=== PATIENT | female | born 1950 | race Caucasian/White ===

== ENCOUNTER → 2019-09-08 17:35 | Outpatient (BNVA) | payer MEDICARE, SELFPAY | PROVIDERS: Family Provider Family Medicine; PCP Family Medicine; Visit Provider Family Medicine | DX: N18.5 Chronic kidney disease, stage 5 (principal); E89.0 Postprocedural hypothyroidism; D63.1 Anemia in chronic kidney disease; J44.9 Chronic obstructive pulmonary disease, unspecified; R25.2 Cramp and spasm | CPT/HCPCS: 80048; 83735; 84100; 84443; 85025 ==

== ENCOUNTER → 2020-05-09 18:00 | Outpatient (BNVA) | payer MEDICARE, SELFPAY | PROVIDERS: Family Provider Family Medicine; PCP Family Medicine; Visit Provider Family Medicine | DX: R53.83 Other fatigue (principal); E55.9 Vitamin D deficiency, unspecified; I10 Essential (primary) hypertension; J44.9 Chronic obstructive pulmonary disease, unspecified; N18.5 Chronic kidney disease, stage 5; E87.5 Hyperkalemia; K91.2 Postsurgical malabsorption, not elsewhere classified; E89.0 Postprocedural hypothyroidism; K21.9 Gastro-esophageal reflux disease without esophagitis; D63.1 Anemia in chronic kidney disease; E87.6 Hypokalemia | CPT/HCPCS: 80053; 80061; 82652; 83735; 84100; 84443; 85025 ==

== ENCOUNTER → 2020-11-29 18:00 | Outpatient (BNVA) | payer MEDICARE, SELFPAY | PROVIDERS: Family Provider Family Medicine; PCP Family Medicine; Visit Provider Family Medicine | DX: I10 Essential (primary) hypertension (principal); G47.00 Insomnia, unspecified; K91.2 Postsurgical malabsorption, not elsewhere classified; E89.0 Postprocedural hypothyroidism; M10.30 Gout due to renal impairment, unspecified site; K21.9 Gastro-esophageal reflux disease without esophagitis; E87.6 Hypokalemia; E83.39 Other disorders of phosphorus metabolism; R25.2 Cramp and spasm; F51.01 Primary insomnia; N18.5 Chronic kidney disease, stage 5; E03.9 Hypothyroidism, unspecified; E55.9 Vitamin D deficiency, unspecified; R53.83 Other fatigue; E87.5 Hyperkalemia; D63.1 Anemia in chronic kidney disease | CPT/HCPCS: 80053; 82652; 83735; 84100; 84439; 84443; 84481; 85025 ==

== ENCOUNTER 2021-03-02 14:44 | Inpatient (IN) | payer SELFPAY ==
[2021-03-02 15:35] VITALS: BP 138/71; PULSE 92; RESP 18; TEMP 36.8; O2SAT 97; BMI 23.1
--- NOTE | 2021-03-02 17:40 | ECG_ITS ---
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 Measurements Intervals [place] Rate: 83 P: 53 ND: 177 QRS: 30 QRSD: 92 T: 39 QT: 382 QTc: 449 Interpretive Statements SINUS RHYTHM No previous ECG available for comparison Electronically Signed On 03-03-2021 22:08:08 CDT by Contreras Rao M.D. [email or web address]
[2021-03-02 19:41] LABS: Basophils % 0.2 %; Eosinophils # 0.2 10^3/uL (0.0-0.8); Eosinophils % 2.1 %; Lymphocytes # 1.2 10^3/uL (0.8-4.8); Lymphocytes % 12.9 %; Mean Corpuscular HGB Conc 29.4 g/dL (30.0-36.0); Mean Corpuscular Hemoglobin 33.1 pg (28.0-34.0); Mean Corpuscular Volume 112.8 fl (81-99); Mean Platelet Volume 10.3 fL (7.4-10.4); Monocytes # 0.6 10^3/uL (0.2-0.9); Monocytes % 6.1 %; Neutrophils # 7.11 10^3/uL (1.8-7.7); Neutrophils % 77.8 %; Nucleated Red Blood Cells % 0 %; Platelet Count 260 10^3/cmm (130-400); Red Blood Count 1.72 10^6/uL (4.1-5.3); Red Cell Distribution Width 17.7 % (12.1-15.1); White Blood Count 9.1 10^3/uL (4.0-10.0)
[2021-03-02 20:05] LABS: Troponin(5th) Baseline 27 ng/L (0-10)
[2021-03-02 20:14] LABS: Alanine Aminotransferase 11 U/L (0-33); Albumin Level 4.2 g/dL (3.5-5.2); Alkaline Phosphatase 110 IU/L (35-105); Anion Gap 20.9 (5-19); Aspartate Amino Transferase 14 U/L (0-32); Blood Urea Nitrogen 44 mg/dL (8-23); Carbon Dioxide 23 mmol/L (22-29); Chloride 102 mmol/L (98-107); Globulin 2.3 g/dL (1.3-4.6); Glomerular Filtration Rate 11.1 mL/min (90-130); Glucose 142 mg/dL (65-115); Lipase 46 U/L (13-60); NT Pro B Type Natriuretic Pept 718 pg/mL (0-125); Osmolality Calculated 306 mOsm/kg (285-295); Potassium 4.9 mmol/L (3.5-5.1); Sodium 141 mmol/L (136-145); Total Bilirubin 0.2 mg/dL (0.15-1.2); Total Protein 6.5 g/dL (6.6-8.7)
[2021-03-02 20:16] LABS: Hematocrit 19.4 % (37.0-47.0); Hemoglobin 5.7 g/dL (11.5-15.3)
--- NOTE | 2021-03-02 20:37 | CTR_ITS ---
PROCEDURE INFORMATION: Exam: CT Abdomen And Pelvis Without Contrast Exam date and time: 03/02/2021 8:37 PM Age: 70 years old Clinical indication: Nausea; Prior surgery; Surgery type: Colon, mastectomy; Patient HX: HX of breast, colon, and bowel cancer; Additional info: H/o colon cancer, anemia TECHNIQUE: Imaging protocol: Computed tomography of the abdomen and pelvis without contrast. Radiation optimization: All CT scans at this facility use at least one of these dose optimization techniques: automated exposure control; mA and/or kV adjustment per patient size (includes targeted exams where dose is matched to clinical indication); or iterative reconstruction. COMPARISON: CR (CHEST, ) 03/02/2021 8:48 PM RADIATION DOSE METRICS: Total DLP (mGy-cm): 960.11 FINDINGS: Liver: Fluid density cyst in the left liver lobe, Hounsfield units less than 20. No imaging follow-up is recommended. Gallbladder and bile ducts: The gallbladder is absent. Pancreas: Normal. No ductal dilation. Spleen: Normal. No splenomegaly. Adrenal glands: Normal. No mass. Kidneys and ureters: Atrophic right kidney. 2.0 cm irregular shaped nonobstructing calculus in the posterior left kidney. Fluid density cysts in the left kidney, Hounsfield units less than 20. No imaging follow-up is recommended. Bilateral perinephric stranding is most likely chronic and physiologic. No ureteral calculus or hydronephrosis. Stomach and bowel: The entire colon has been resected. Right lower quadrant ileostomy. The stomach is normal. There are fluid-filled loops of small bowel which measure up to 3 cm in diameter with small air-fluid levels. No focal transition point or obstruction identified. Appendix: The appendix is surgically absent. Intraperitoneal space: Abdominal peroneal resection. 2.5 cm cystic fluid collection in the posterior pelvis is most likely a seroma, Hounsfield units less than 20. Vasculature: Unremarkable. No abdominal aortic aneurysm. Lymph nodes: Unremarkable. No enlarged lymph nodes. Urinary bladder: Unremarkable as visualized. Reproductive: Unremarkable as visualized. Bones/joints: Unremarkable. No acute fracture. Soft tissues: Surgical clips in the pelvis. CT/CT abdomen pelvis wo con [id number] IMPRESSION: 1. Prominent fluid-filled loops of small bowel could represent mild ileus or enteritis. No evidence for obstruction. 2. Colon resection with abdominal peroneal resection. 3. Atrophic right kidney. 4. 2.0 cm nonobstructing left renal calculus. COMMENTS: Consistent with the [employer]'s Incidental Findings Committee white paper (J Am Chacorta Radiol 2018): Any incidental renal lesion less than 1 cm or classified as too small to characterize, or any incidental cystic renal lesion characterized as simple-appearing, is likely benign. No follow-up imaging is recommended for these lesions per consensus recommendations based on imaging criteria. Radiation Dose CTDIVOL = (mGy): DLP = 960.11 (mGy-cm)
--- NOTE | 2021-03-02 20:37 | XRR_ITS ---
PROCEDURE INFORMATION: Exam: XR Chest Exam date and time: 03/02/2021 8:37 PM Age: 70 years old Clinical indication: Shortness of breath; Prior surgery; Surgery type: Masectomy; Patient HX: HX breast cancer, SOB, dizzy, weak TECHNIQUE: Imaging protocol: XR of the chest. Views: 1 view. COMPARISON: No relevant prior studies available. FINDINGS: Lungs: Unremarkable. No consolidation. Pleural spaces: Unremarkable. No pleural effusion. No pneumothorax. Heart/Mediastinum: Unremarkable. No cardiomegaly. Bones/joints: Unremarkable. XR/XR chest 1V portable [id number] IMPRESSION: No acute findings.
[2021-03-02 22:03] LABS: Troponin 5 2HR 22.92 ng/L (0-10)
[2021-03-02 22:04] LABS: Troponin 5 2HR Delta -4.08 ABS# (0-10)
--- NOTE | 2021-03-02 22:17 | PC.NURSE ---
no blood tubing in er, charge nurse to find some.
[2021-03-02 23:00] VITALS: BP 138/77; PULSE 84; RESP 18; TEMP 37.1; O2SAT 98
[2021-03-02] MEDS: sodium chloride 0.9% 1,000 ML 30 ML IV (23:01)
[2021-03-02 23:16] VITALS: BP 136/66; PULSE 87; RESP 18; TEMP 36.9; O2SAT 100
[2021-03-02 23:36] VITALS: BP 136/6; PULSE 82; RESP 18; TEMP 37.2; O2SAT 100
[2021-03-03] VITALS (12 sets, daily range): BP systolic 119–154; BP diastolic 49–84; PULSE 69–94; RESP 14–18; TEMP 36.5–37.3; O2SAT 97–100; BMI 23.1
--- NOTE | 2021-03-03 00:11 | ED_ITS ---
HPI - Weakness General: Chief complaint: ER Hold Stated complaint: dizzy, weak, pale Time Seen by Provider: 03/02/21 20:17 Source: patient, family () and RN notes reviewed Mode of arrival: ambulatory Limitations: physical limitation History of Present Illness: HPI Narrative: Patient is a 70-year-old female who has a prior history of Crohn's disease, colon cancer, status post total colectomy and ileostomy, breast cancer, thyroid cancer. She presents to the emergency department with generalized weakness that has been ongoing for about a week. Her noticed that she has also been getting paler and weaker. She gets very dizzy especially when she rises from a sitting or lying position. She has had no syncopal events. Her stoma was noted to be pale. Her therefore thought that she was pretty anemic and wanted her evaluated in the emergency department. MD Complaint: generalized weakness Onset (ago): week(s) (1) Duration: constant Location: generalized Migration: none Severity: severe Exacerbating factors: exertion Associated symptoms: Reports short of breath; Denies chest pain, chills, confusion, melena, decreased appetite, diaphoresis, dysuria, easy bruising, fever(s), headache(s), myalgias, nausea, rash, syncope or vomiting Review of Systems General: Reports: 10 or more systems reviewed and unremarkable except in HPI and below Const: Denies: fever(s), chills or diaphoresis Card: Denies: chest pain or syncope GI: Denies: nausea, vomiting or melena : Denies: dysuria Neuro: Denies: headache(s) or confusion Hermes/Lymph: Denies: easy bruising [facility] ED PFSH: Medical History (Updated 03/03/21 @ 13:15 by Rosaura Lee MD, [facility] [place]) Acquired short bowel syndrome Anemia in chronic kidney disease (CKD) Chronic GERD Gout due to renal impairment History of breast cancer History of colon cancer History of rectal cancer History of thyroid cancer Hyperkalemia Hypertension Insomnia Ambien caused sleep eating. Melatonin caused nightmare. Muscle cramps Postoperative hypothyroidism Stage 5 chronic kidney disease Vitamin D deficiency Surgical History H/O ileostomy H/O nephrostomy H/O: hysterectomy History of intestinal surgery Hx of cataract surgery Social History Smoking and tobacco status: never smoked Second hand smoke exposure: No Alcohol intake: never Desire information about alcohol rehabilitation?: No Desire information about substance/drug rehabilitation?: No History of recent travel: No Female Reproductive History: Spontaneous abortions: No Physical Exam Const: COMMON NORMALS: no acute distress, average body habitus, patient oriented x3, no limitations, healthy appearing, alert and well nourished HENMT: COMMON NORMALS: normocephalic, atraumatic and moist oral mucous membranes HEAD & SCALP: normocephalic and atraumatic Neck/C-Spine: COMMON NORMALS: no meningeal signs and no JVD Resp: COMMON NORMALS: normal respiratory effort, No retractions, No use of accessory muscles, clear to auscultation bilaterally and percussion normal AUSCULTATION: clear to auscultation bilaterally PERCUSSION: percussion normal Cardio: COMMON NORMALS: no JVD, regular rate, regular rhythm, S1 normal heart sound present, S2 normal heart sound present, No gallops present (Cardio), No clicks present (Cardio), No murmurs present (Cardio), No rub (Cardio) and Peripheral pulses 2+ throughout RATE: regular rate RHYTHM: regular rhythm HEART SOUNDS: S1 normal heart sound present and S2 normal heart sound present PERIPHERAL PULSES: Peripheral pulses 2+ throughout GI: COMMON NORMALS: Soft to palpation, non-tender, No hepatosplenomegaly present, no masses and no bruits INSPECTION: Yes GI ostomy present PALPATION: Yes Soft to palpation and Yes No hepatosplenomegaly present Extremity: COMMON NORMALS: normal to inspection, full ROM, capillary refill normal, no calf tenderness and no pedal edema Neuro: COMMON NORMALS: patient oriented x3 SENSORIUM/ORIENTATION: Yes alert MENINGEAL SIGNS: Yes no meningeal signs Skin: COMMON NORMALS: no rashes or lesions noted, no wounds, turgor normal, no jaundice, no petechiae and no mottling GENERAL SKIN EXAM: no rashes or lesions noted and turgor normal Course Reevaluation(s): Reevaluation #1: Discussed her lab and imaging findings with the patient and her earlier and at that time, suggested that she would likely be admitted. Discussed my conversation with Dr. De Leon with the patient. She voiced understanding and all questions answered. Time: 22:40 Consultations: Consultation #1: Discussed the patient with Dr. De Leon, hosp italist and she kindly accepted the patient to her service. Time: 22:32 Vital Signs: Vital signs: Vital Signs Temperature 98.5 F 03/03/21 12:00 Pulse Rate 69 03/03/21 12:00 Respiratory Rate 16 03/03/21 12:00 Blood Pressure 120/66 03/03/21 12:00 Pulse Oximetry 97 03/03/21 12:00 MDM - Weakness MDM Narrative: Medical decision making narrative: This pleasant 70-year-old female patient with history of multiple types of cancer, Crohn's disease, total colectomy and a permanent ileostomy presents to the emergency department with generalized weakness and pallor. On evaluation she is severely anemic with hemoglobin of 5.7. She was started on blood transfusions in the emergency department and is admitted to the hospital for further evaluation and management Medical Records: Attestation: I reviewed the patient's medical records. Lab Data: Attestation: I reviewed the patient's lab results. Labs: Lab Results 03/02/21 03/02/21 03/02/21 Range/Units 19:33 19:33 19:33 WBC 9.1 (4.0-10.0) 10^3/ uL RBC 1.72 L (4.1-5.3) 10^6/u L Hgb 5.7 L* (11.5-15.3) g/dL Hct 19.4 L* (37.0-47.0) % MCV 112.8 H (81-99) fl MCH 33.1 (28.0-34.0) pg MCHC 29.4 L (30.0-36.0) g/dL RDW 17.7 H (12.1-15.1) % Plt Count 260 (130-400) 10^3/c mm MPV 10.3 (7.4-10.4) fL Neut % (Auto) 77.8 % Lymph % (Auto) 12.9 % Highland % (Auto) 6.1 % Eos % (Auto) 2.1 % Baso % (Auto) 0.2 % Neut # (Auto) 7.11 (1.8-7.7) 10^3/u L Lymph # (Auto) 1.2 (0.8-4.8) 10^3/u L Highland # (Auto) 0.6 (0.2-0.9) 10^3/u L Eos # (Auto) 0.2 (0.0-0.8) 10^3/u L Baso # (Auto) 0.0 (0.0-0.1) 10^3/u L Nucleated RBC % (a uto) 0 % Nucleated RBCs # 0.0 /100WBC Sodium 141 (136-145) mmol/L Potassium 4.9 (3.5-5.1) mmol/L Chloride 102 (98-107) mmol/L Carbon Dioxide 23 (22-29) mmol/L Anion Gap 20.9 H (5-19) BUN 44 H (8-23) mg/dL Creatinine 4.0 H (0.5-0.9) mg/dL GFR Calculation 11.1 L (90-130) mL/min Glucose 142 H (65-115) mg/dL Calculated Osmolal ity 306 H (285-295) mOsm/k g Calcium 9.0 (8.5-10.5) mg/dL Iron (37-145) ug/dL TIBC mcg/dl % Saturation (20-50) % Unsat Iron Binding (112-347) ug/dL Ferritin (15-150) ng/mL Total Bilirubin 0.2 (0.15-1.2) mg/dL AST 14 (0-32) U/L ALT 11 (0-33) U/L Alkaline Phosphata se 110 H (35-105) IU/L Troponin T Baselin e 27 H (0-10) ng/L Troponin T 120 Min ho-chunk (0-10) ng/L Delta Troponin T (0-10) ABS# NT-Pro-B Natriuret Pep 718 H (0-125) pg/mL Total Protein 6.5 L (6.6-8.7) g/dL Albumin 4.2 (3.5-5.2) g/dL Globulin 2.3 (1.3-4.6) g/dL Lipase 46 (13-60) U/L Vitamin B12 (232-1245) pg/mL Folate (4.8-37.3) ng/mL Blood Type Rho(D) Type Antibody Screen Crossmatch 03/02/21 03/02/21 03/02/21 Range/Units 19:33 19:33 19:33 WBC (4.0-10.0) 10^3/ uL RBC (4.1-5.3) 10^6/u L Hgb (11.5-15.3) g/dL Hct (37.0-47.0) % MCV (81-99) fl MCH (28.0-34.0) pg MCHC (30.0-36.0) g/dL RDW (12.1-15.1) % Plt Count (130-400) 10^3/c mm MPV (7.4-10.4) fL Neut % (Auto) % Lymph % (Auto) % Highland % (Auto) % Eos % (Auto) % Baso % (Auto) % Neut # (Auto) (1.8-7.7) 10^3/u L Lymph # (Auto) (0.8-4.8) 10^3/u L Highland # (Auto) (0.2-0.9) 10^3/u L Eos # (Auto) (0.0-0.8) 10^3/u L Baso # (Auto) (0.0-0.1) 10^3/u L Nucleated RBC % (a uto) % Nucleated RBCs # /100WBC Sodium (136-145) mmol/L Potassium (3.5-5.1) mmol/L Chloride (98-107) mmol/L Carbon Dioxide (22-29) mmol/L Anion Gap (5-19) BUN (8-23) mg/dL Creatinine (0.5-0.9) mg/dL GFR Calculation (90-130) mL/min Glucose (65-115) mg/dL Calculated Osmolal ity (285-295) mOsm/k g Calcium (8.5-10.5) mg/dL Iron 36 L (37-145) ug/dL TIBC 368 mcg/dl % Saturation 9.7 L (20-50) % Unsat Iron Binding 332 (112-347) ug/dL Ferritin 122 (15-150) ng/mL Total Bilirubin (0.15-1.2) mg/dL AST (0-32) U/L ALT (0-33) U/L Alkaline Phosphata se (35-105) IU/L Troponin T Baselin e (0-10) ng/L Troponin T 120 Min ho-chunk (0-10) ng/L Delta Troponin T (0-10) ABS# NT-Pro-B Natriuret Pep (0-125) pg/mL Total Protein (6.6-8.7) g/dL Albumin (3.5-5.2) g/dL Globulin (1.3-4.6) g/dL Lipase (13-60) U/L Vitamin B12 987 (232-1245) pg/mL Folate 15.6 (4.8-37.3) ng/mL Blood Type O Positive Rho(D) Type Positive Antibody Screen Negative Crossmatch See Detail 03/02/21 Range/Units 21:28 WBC (4.0-10.0) 10^3/ uL RBC (4.1-5.3) 10^6/u L Hgb (11.5-15.3) g/dL Hct (37.0-47.0) % MCV (81-99) fl MCH (28.0-34.0) pg MCHC (30.0-36.0) g/dL RDW (12.1-15.1) % Plt Count (130-400) 10^3/c mm MPV (7.4-10.4) fL Neut % (Auto) % Lymph % (Auto) % Highland % (Auto) % Eos % (Auto) % Baso % (Auto) % Neut # (Auto) (1.8-7.7) 10^3/u L Lymph # (Auto) (0.8-4.8) 10^3/u L Highland # (Auto) (0.2-0.9) 10^3/u L Eos # (Auto) (0.0-0.8) 10^3/u L Baso # (Auto) (0.0-0.1) 10^3/u L Nucleated RBC % (a uto) % Nucleated RBCs # /100WBC Sodium (136-145) mmol/L Potassium (3.5-5.1) mmol/L Chloride (98-107) mmol/L Carbon Dioxide (22-29) mmol/L Anion Gap (5-19) BUN (8-23) mg/dL Creatinine (0.5-0.9) mg/dL GFR Calculation (90-130) mL/min Glucose (65-115) mg/dL Calculated Osmolal ity (285-295) mOsm/k g Calcium (8.5-10.5) mg/dL Iron (37-145) ug/dL TIBC mcg/dl % Saturation (20-50) % Unsat Iron Binding (112-347) ug/dL Ferritin (15-150) ng/mL Total Bilirubin (0.15-1.2) mg/dL AST (0-32) U/L ALT (0-33) U/L Alkaline Phosphata se (35-105) IU/L Troponin T Baselin e (0-10) ng/L Troponin T 120 Min ho-chunk 22.92 H (0-10) ng/L Delta Troponin T -4.08 L (0-10) ABS# NT-Pro-B Natriuret Pep (0-125) pg/mL Total Protein (6.6-8.7) g/dL Albumin (3.5-5.2) g/dL Globulin (1.3-4.6) g/dL Lipase (13-60) U/L Vitamin B12 (232-1245) pg/mL Folate (4.8-37.3) ng/mL Blood Type Rho(D) Type Antibody Screen Crossmatch Imaging Data^: CT Abd/Pel: Attestation: I personally reviewed and interpreted this imaging study as follows: Radiologist's impression: [address] [id number] Scan ReportSigned Patient: Alistair Crowley #: [id number]: [id number]#:[id number]/Sex: 70 / FADM Date: 03/02/21Loc: ERRoom/Bed:Attending Dr: Ordering Provider/Ordering MD: Rosaura Lee MD, [facility] [place] Date of Service: 03/02/21 Procedure(s): CT abdomen pelvis con [id number] Accession Number(s): [id number] Report Number: [id number] PROCEDURE INFORMATION: Exam: CT Abdomen And Pelvis Without Contrast Exam date and time: 03/02/2021 8:37 PM Age: 70 years old Clinical indication: Nausea; Prior surgery; Surgery type: Colon, mastectomy; Patient HX: HX of breast, colon, and bowel cancer; Additional info: H/o colon cancer, anemia TECHNIQUE: Imaging protocol: Computed tomography of the abdomen and pelvis without contrast. Radiation optimization: All CT scans at this facility use at least one of these dose optimization techniques: automated exposure control; mA and/or kV adjustment per patient size (includes targeted exams where dose is matched to clinical indication); or iterative reconstruction. COMPARISON: CR (CHEST, ) 03/02/2021 8:48 PM RADIATION DOSE METRICS: Total DLP (mGy-cm): 960.11 FINDINGS: Liver: Fluid density cyst in the left liver lobe, Hounsfield units less than 20. No imaging follow-up is recommended. Gallbladder and bile ducts: The gallbladder is absent. Pancreas: Normal. No ductal dilation. Spleen: Normal. No splenomegaly. Adrenal glands: Normal. No mass. Kidneys and ureters: Atrophic right kidney. 2.0 cm irregular shaped nonobstructing calculus in the posterior left kidney. Fluid density cysts in the left kidney, Hounsfield units less than 20. No imaging follow-up is recommended. Bilateral perinephric stranding is most likely chronic and physiologic. No ureteral calculus or hydronephrosis. Stomach and bowel: The entire colon has been resected. Right lower quadrant ileostomy. The stomach is normal. There are fluid-filled loops of small bowel which measure up to 3 cm in diameter with small air-fluid levels. No focal transition point or obstruction identified. Appendix: The appendix is surgically absent. Intraperitoneal space: Abdominal peroneal resection. 2.5 cm cystic fluid collection in the posterior pelvis is most likely a seroma, Hounsfield units less than 20. Vasculature: Unremarkable. No abdominal aortic aneurysm. Lymph nodes: Unremarkable. No enlarged lymph nodes. Urinary bladder: Unremarkable as visualized. Reproductive: Unremarkable as visualized. Bones/joints: Unremarkable. No acute fracture. Soft tissues: Surgical clips in the pelvis. CT/CT abdomen pelvis wo con [id number] IMPRESSION: 1. Prominent fluid-filled loops of small bowel could represent mild ileus or enteritis. No evidence for obstruction. 2. Colon resection with abdominal peroneal resection. 3. Atrophic right kidney. 4. 2.0 cm nonobstructing left renal calculus. COMMENTS: Consistent with the [employer]'s Incidental Findings Committee white paper (J Am Chacorta Radiol 2018): Any incidental renal lesion less than 1 cm or classified as too small to characterize, or any incidental cystic renal lesion characterized as simple-appearing, is likely benign. No follow-up imaging is recommended for these lesions per consensus recommendations based on imaging criteria. Radiation Dose CTDIVOL = (mGy): DLP = 960.11 (mGy-cm) Dictated By:Bay Thomas By:Bay Thomas Date/Time:03/02/213DD/ 41 CXR: Attestation: I personally reviewed and interpreted this imaging study as follows: Radiologist's impression: [address] [id number] ReportSigned Patient: Alistair Crowley #: [id number]: [id number]#:[id number]/Sex: 70 / FADM Date: 03/02/21Loc: ERRoom/Bed:Attending Dr: Ordering Provider/Ordering MD: Rosaura Lee MD, [facility] [place] Date of Service: 03/02/21 Procedure(s): XR chest 1V portable [id number] Accession Number(s): [id number] Report Number: [id number] PROCEDURE INFORMATION: Exam: XR Chest Exam date and time: 03/02/2021 8:37 PM Age: 70 years old Clinical indication: Shortness of breath; Prior surgery; Surgery type: Masectomy; Patient HX: HX breast cancer, SOB, dizzy, weak TECHNIQUE: Imaging protocol: XR of the chest. Views: 1 view. COMPARISON: No relevant prior studies available. FINDINGS: Lungs: Unremarkable. No consolidation. Pleural spaces: Unremarkable. No pleural effusion. No pneumothorax. Heart/Mediastinum: Unremarkable. No cardiomegaly. Bones/joints: Unremarkable. XR/XR chest 1V portable [id number] IMPRESSION: No acute findings. Dictated By:Bay Thomas By:Bay Thomas Date/Time:03/02/214DD/ 31 Discharge Plan Discharge Patient Disposition: Admitted As Inpatient Admit Provider: Angeles De Leon Clinical Impression: Anemia, Stage 5 chronic kidney disease, Crohn's disease Condition: Stable Coding Level of Care Code ED Personnel And Payroll Technician for Juarez Arciniega
[2021-03-03 02:21] LABS: Ferritin 122 ng/mL (15-150); Iron 36 ug/dL (37-145); Percent Saturation 9.7 % (20-50); Total Iron Binding Capacity 368 mcg/dl; Unsaturated Iron Binding 332 ug/dL (112-347)
[2021-03-03 02:23] LABS: Troponin 5 6HR 21.33 ng/L (0-10)
[2021-03-03 02:28] LABS: Troponin 5 6HR Delta -5.67 ng/L (0-12)
[2021-03-03 02:36] LABS: Folate Level 15.6 ng/mL (4.8-37.3); Vitamin B12 987 pg/mL (232-1245)
--- NOTE | 2021-03-03 04:00 | P.HP_ITS ---
Providers/Chief Complaint Admitting Physician: Angeles De Leon MD Primary Care Provider: Dionne Montaño MD Chief Complaint: dizzy, weak, pale History of Present Illness Melina Crowley is a 70 year old female with a complicated past medical history of breast cancer, colon cancer, rectal cancer, status post total colectomy, currently with ileostomy in place, chronic electrolyte disturbances, chronic kidney disease, chronic anemia who was brought into the ER today by her after patient was noted to become become more pale and lethargic over the past 2 weeks. Hemoglobin here is noted to be 5.7, few months ago this was at 9.5. Patient has had multiple transfusions back in 2013 and 2014. She had CKD for several years, was on dialysis in the past, eventually discontinued once creatinine stabilized at 3. More recently creatinine has been increasing in the 4 range, she has refused referral to nephrology. No complaints of any fever chest pain dyspnea palpitations cough abdominal pain. No changes in ileostomy output. No noted blood in the ileal output. No vomiting. She has a history of Crohn's disease but some duodenal involvement in the past, however is currently on observation only. She takes Pepcid 20 mg p.o. twice daily, PPIs have been avoided due to CKD. Review of Systems General: Reports: 10 or more systems reviewed and unremarkable except in HPI and below Const: Denies: fever(s), chills or body aches Eyes: Denies: change in vision, blurry vision or photophobia ENMT: Reports: hoarseness; Denies: throat pain, enlarged tonsils, odynophagia or nasal congestion Card: Denies: chest pain, palpitations, irregular heart rhythm, edema, swelling of feet/ankles, lightheadedness, pre-syncope, dyspnea on exertion or orthopnea Resp: Denies: dyspnea, productive cough, non-productive cough, wheezing, stridor, pain on inspiration, change in phlegm color, hemoptysis or chest congestion GI: Denies: abdominal pain, nausea, vomiting, hematemesis, coffee ground emesis, dysphagia, heartburn, diarrhea, constipation, GI cramping, change in stool character, hematochezia or melena : Denies: flank pain, difficulty voiding, dysuria, urinary frequency, urinary urgency, urinary hesitancy or hematuria Musc: Denies: neck pain, back pain, extremity pain, joint swelling, joint warmth or deformity Neuro: Denies: headache(s), numbness in extremities, weakness in extremities, sensory changes, difficulty walking, frequent falls, dizziness, vertigo, behavioral changes, Slurred speech present or seizure-like activity Psych: Denies: anxiety, depression, suicidal ideation or homicidal ideation Endo: Denies: polyuria, polydipsia, tired all the time, cold intolerance or hot flashes Hermes/Lymph: Denies: easy bruising or easy bleeding Medications/Allergies Home Medications Medication Instructions Recorded Confirmed Last Taken Type allopurinol 100 mg tablet 50 mg PO DAILY 90 Days #45 tab 11/29/20 11/29/20 Unk nown Rx clonidine HCl 0.1 mg tablet 0.1 mg PO DAILY PRN 30 Days #30 tab 11/29/20 11/29/20 Unknown Rx diphenoxylate-atropine 2.5 1 tab PO QID PRN 90 Days #360 tab 11/29/20 11/29/20 Unknown Rx mg-0.025 mg tablet famotidine 20 mg tablet 20 mg PO BID 90 Days #180 tab 11/29/20 11/29/20 Unknown Rx levothyroxine 150 mcg tablet 150 mcg PO DAILY 90 Days #90 tab 11/29/20 11/29/20 Unknown Rx levothyroxine 75 mcg tablet 75 mcg PO DAILY 90 Days #90 tab 11/29/20 11/29/20 Unknown Rx lisinopril 20 mg tablet 20 mg PO BID 90 Days #180 tab 11/29/20 11/29/20 Unknown Rx loperamide 2 mg capsule 6 mg PO TID 90 Days #810 cap 11/29/20 11/29/20 Unknown Rx lorazepam 0.5 mg tablet 0.5 mg PO DAILY PRN #30 tab 11/29/20 11/29/20 Unknown Rx ondansetron HCl 4 mg tablet 4 mg PO Q8H PRN 90 Days #270 tab 11/29/20 11/29/20 Unknown Rx potassium citrate 10 mEq (1,080 10 meq PO DAILY 90 Days #90 tab 11/29/20 11/29/20 Unknown Rx mg) tablet,extended release prednisone 20 mg tablet 20 mg PO DAILY PRN 5 Days #20 tab 11/29/20 11/29/20 Unknown Rx sevelamer carbonate 0.8 gram oral 0.8 g PO TID 30 Days #90 each 11/29/20 11/29/20 Unknown Rx powder packet tizanidine 4 mg tablet 4 mg PO BID PRN 90 Days #180 tab 11/29/20 11/29/20 Unknown Rx Allergies Allergy/AdvReac Type Severity Reaction Status Date / Time adhesive tape Allergy Unknown UNKNOWN Verified 11/29/20 13:34 gentamicin Allergy Unknown UNKNOWN Verified 11/29/20 13:34 hydromorphone [From Dilaudid] Allergy Unknown UNKNOWN Verified 11/29/20 13:34 iodine Allergy Unknown UNKNOWN Verified 11/29/20 13:34 sulfamethoxazole Allergy Unknown UNKNOWN Verified 11/29/20 13:34 [From Septra] trimethoprim [From Septra] Allergy Unknown UNKNOWN Verified 11/29/20 13:34 PFSH Acute PFSH: Medical History Acquired short bowel syndrome Anemia in chronic kidney disease (CKD) Chronic GERD Gout due to renal impairment History of breast cancer History of colon cancer History of rectal cancer History of thyroid cancer Hyperkalemia Hypertension Insomnia Ambien caused sleep eating. Melatonin caused nightmare. Muscle cramps Postoperative hypothyroidism Stage 5 chronic kidney disease Vitamin D deficiency Surgical History H/O ileostomy H/O nephrostomy H/O: hysterectomy History of intestinal surgery Hx of cataract surgery Social History Smoking and tobacco status: never smoked Second hand smoke exposure: No Alcohol intake: never Desire information about alcohol rehabilitation?: No Desire information about substance/drug rehabilitation?: No History of recent travel: No Female Reproductive History: Spontaneous abortions: No Vitals/I&O/Wt Last Vital Signs Temp 98.8 F 03/03/21 06:39 Pulse 94 03/03/21 06:39 Resp 18 03/03/21 06:39 BP 127/84 03/03/21 06:39 Pulse Ox 98 03/03/21 06:39 03/02/21 03/03/21 03/03/21 22:59 06:59 14:59 Intake Total 700 / 700 Balance 700 / 700 Weight last 48 hrs Weight 64.864 kg Physical Exam Narrative: EXAM NARRATIVE: General: No acute distress, AO x3 HEENT: PERRLA, pupils bilaterally equal and reactive, pallors not present Chest: Normal vesicular breath sounds, no added sounds, equal good air entry bilaterally CVS: S1-S2 regular, no murmurs, no tachycardia, no gallops, no rubs Abdomen: Soft, nontender, ileostomy in place. Neuro: No focal deficits, no facial deformity, AO x3, power 5/5 in all limbs Data : 03/02/21 19:33 03/03/21 05:40 A&P Assessment and plan (1) Anemia in chronic kidney disease (CKD): Status: Chronic Qualifiers: Chronic kidney disease stage: stage 5, not on chronic dialysis Qu alified Code(s): N18.5 - Chronic kidney disease, stage 5; D63.1 - Anemia in chronic kidney disease (2) Acquired short bowel syndrome: Status: Chronic Additional A&P Information Patient presenting today with symptomatic anemia with hemoglobin down to 5.7. Suspect this to be anemia of chronic disease given slowly downtrending hemoglobin. Alternate possibilities may be nutritional deficiency anemia from poor absorption due to short gut syndrome. Check iron, ferritin, TIBC, B12 and folate levels. Lower suspicion for ongoing GI bleed patient has had no symptoms of hematemesis. No blood noted in the ileal output. Ileal appetite overall is overall grossly unchanged. She is status post total colectomy. Ordered for 2 units of red blood cell transfusion today, recheck hemoglobin after transfusion. Goal hemoglobin to be at 7. Observation admission, likely discharge home after blood transfusion if remains stable. Attestations Medical Necessity Statement*: Observation admission for need of blood transfusion for symptomatic anemia. Coding Level of Care Code Acute Pricer Bagger for [facility] Fwd Diagnoses Anemia in chronic kidney disease (CKD) N18.5; D63.1 Chronic kidney disease stage: stage 5, not on chronic dialysis Acquired short bowel syndrome K91.2
[2021-03-03 06:21] LABS: Alanine Aminotransferase 10 U/L (0-33); Albumin Level 3.6 g/dL (3.5-5.2); Alkaline Phosphatase 99 IU/L (35-105); Anion Gap 14.7 (5-19); Aspartate Amino Transferase 13 U/L (0-32); Blood Urea Nitrogen 41 mg/dL (8-23); Calcium 8.7 mg/dL (8.5-10.5); Carbon Dioxide 26 mmol/L (22-29); Chloride 106 mmol/L (98-107); Globulin 2.6 g/dL (1.3-4.6); Glomerular Filtration Rate 10.2 mL/min (90-130); Glucose 165 mg/dL (65-115); Osmolality Calculated 308 mOsm/kg (285-295); Potassium 4.7 mmol/L (3.5-5.1); Sodium 142 mmol/L (136-145); Total Bilirubin 0.4 mg/dL (0.15-1.2); Total Protein 6.2 g/dL (6.6-8.7)
[2021-03-03 09:47] LABS: Basophils % 0.4 %; Eosinophils # 0.2 10^3/uL (0.0-0.8); Eosinophils % 3.2 %; Hematocrit 25.5 % (37.0-47.0); Lymphocytes # 0.9 10^3/uL (0.8-4.8); Lymphocytes % 11.7 %; Mean Corpuscular HGB Conc 31.4 g/dL (30.0-36.0); Mean Corpuscular Hemoglobin 31.7 pg (28.0-34.0); Mean Corpuscular Volume 101.2 fl (81-99); Mean Platelet Volume 10.2 fL (7.4-10.4); Monocytes # 0.5 10^3/uL (0.2-0.9); Neutrophils # 5.57 10^3/uL (1.8-7.7); Neutrophils % 76.9 %; Nucleated Red Blood Cells % 0 %; Platelet Count 206 10^3/cmm (130-400); Red Blood Count 2.52 10^6/uL (4.1-5.3); White Blood Count 7.3 10^3/uL (4.0-10.0)
--- NOTE | 2021-03-03 10:26 | PM.PN ---
Subjective Subjective: Interval history: Hemoglobin improved to 8, hemodynamically stable, had a large episode of coffee-ground emesis this morning shortly after breakfast. Pepcid discontinued, started IV Protonix 40 mg every 12 hours. Medications: Reviewed: Yes Vitals/I&O/Wt Last Vital Signs Temp 97.7 F 03/03/21 08:13 Pulse 71 03/03/21 08:13 Resp 14 03/03/21 08:13 BP 145/70 03/03/21 08:13 Pulse Ox 100 03/03/21 08:13 03/02/21 03/03/21 03/03/21 22:59 06:59 14:59 Intake Total 700 / 700 240 / 240 Balance 700 / 700 240 / 240 Weight last 48 hrs Weight 64.864 kg Weight 64.864 kg Physical Exam Narrative: EXAM NARRATIVE: General: No acute distress, AO x3 HEENT: PERRLA, pupils bilaterally equal and reactive, pallors not present Chest: Normal vesicular breath sounds, no added sounds, equal good air entry bilaterally CVS: S1-S2 regular, no murmurs, no tachycardia, no gallops, no rubs Abdomen: Soft, nontender, ileostomy in place. Data : 03/03/21 08:32 03/03/21 05:40 A&P Assessment and plan (1) Anemia in chronic kidney disease (CKD): Status: Chronic Qualifiers: Chronic kidney disease stage: stage 5, not on chronic dialysis Qualified Code(s): N18.5 - Chronic kidney disease, stage 5; D63.1 - Anemia in chronic kidney disease (2) Acquired short bowel syndrome: Status: Chronic (3) Coffee ground emesis: Status: Acute Additional A&P Information Patient presenting today with symptomatic anemia with hemoglobin down to 5.7. Suspect this to be anemia of chronic disease given slowly downtrending hemoglobin. Alternate possibilities may be nutritional deficiency anemia from poor absorption due to short gut syndrome. Hemoglobin improved to 8 after transfusion of 2 units of packed red blood cells. Initially low concern for GI bleeding, however this morning patient had an episode of coffee-ground emesis shortly after breakfast. Given her history also of Crohn's and per discussion with possibly duodenal erosions and ulcerations, will need further evaluation for GI bleed given symptomatic anemia. GI consult with Dr. Mercado for possible endoscopy Started Protonix 40 mg IV every 12 hours Repeat H&H at 6 PM N.p.o. 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
[2021-03-03] MEDS: dextrose 5%-sod chloride 0.9% 1,000 ML 30 ML IV (10:41)
[2021-03-03] MEDS: pantoprazole 40 mg SDV IVP ×2 (10:41→22:44)
--- NOTE | 2021-03-03 11:47 | PM.CONSULT ---
Providers/Reason For Consult Consulting Physician/Specialty*: Endoscopist Reason for Consult*: Coffee-ground emesis and acute on chronic anemia Attending Physician: Angeles De Leon MD Primary Care Provider: Dionne Montaño MD History of Present Illness History of Present Illness Melina Crowley is a 70 year old female who presented to the emergency room today because she had been feeling more weak over the last several weeks. During her evaluation in the ER, she was noted to have a hemoglobin of 5.7. The patient believes that her hemoglobin usually runs in the 8-9 range. She states that she is not sure of the true cause of the anemia, but says she has been worked up before in the past and that she believes her physicians determined it was due to multiple factors. After admission this morning, the patient did have some dark emesis that she unfortunately flushed before could be evaluated. She states that this is the first time she has thrown up in a long time. She denies any jorge blood in her ileostomy bag. She has had some dark stool intermittently. Otherwise, she has no history of hematemesis. Review of Systems General: Reports: 10 or more systems reviewed and unremarkable except in HPI and below Const: Denies: fever(s) Card: Denies: chest pain or irregular heart rhythm Resp: Denies: dyspnea GI: Reports: vomiting and coffee ground emesis (Questionable); Denies: abdominal pain Hermes/Lymph: Denies: easy bruising or easy bleeding Meds/Allergies Home Medications and Allergies Home Medications Medication Instructions Recorded Confirmed Last Taken Type allopurinol 100 mg tablet 50 mg PO DAILY 90 Days #45 tab 11/29/20 03/03/21 Unknown Rx clonidine HCl 0.1 mg tablet 0.1 mg PO DAILY PRN 30 Days #30 tab 11/29/20 03/03/21 Unknown Rx diphenoxylate-atropine 2.5 1 tab PO QID PRN 90 Days #360 tab 11/29/20 03/03/21 Unknown Rx mg-0.025 mg tablet famotidine 20 mg tablet 20 mg PO BID 90 Days #180 tab 11/29/20 03/03/21 Unknown Rx levothyroxine 150 mcg tablet 150 mcg PO DAILY 90 Days #90 tab 11/29/20 03/03/21 Unknown Rx levothyroxine 75 mcg tablet 75 mcg PO DAILY 90 Days #90 tab 11/29/20 03/03/21 Unknown Rx lisinopril 20 mg tablet 20 mg PO BID 90 Days #180 tab 11/29/20 03/03/21 Unknown Rx loperamide 2 mg capsule 6 mg PO TID 90 Days #810 cap 11/29/20 03/03/21 Unknown Rx lorazepam 0.5 mg tablet 0.5 mg PO DAILY PRN #30 tab 11/29/20 03/03/21 Unknown Rx ondansetron HCl 4 mg tablet 4 mg PO Q8H PRN 90 Days #270 tab 11/29/20 03/03/21 Unknown Rx potassium citrate 10 mEq (1,080 10 meq PO DAILY 90 Days #90 tab 11/29/20 03/03/21 Unknown Rx mg) tablet,extended release prednisone 20 mg tablet 20 mg PO DAILY PRN 5 Days #20 tab 11/29/20 03/03/21 Unknown Rx sevelamer carbonate 0.8 gram oral 0.8 g PO TID 30 Days #90 each 11/29/20 03/03/21 Unknown Rx powder packet tizanidine 4 mg tablet 4 mg PO BID PRN 90 Days #180 tab 11/29/20 03/03/21 Unknown Rx alpha lipoic acid 100 mg PO DAILY 03/03/21 03/03/21 Unknown History calcium carbonate [Calcium 500] 500 mg PO DAILY 03/03/21 03/03/21 Unknown History cholecalciferol (vitamin D3) 25 mcg PO DAILY 03/03/21 03/03/21 Unknown History [Vitamin D3] coenzyme Q10 50 mg PO DAILY 03/03/21 03/03/21 Unknown History cyanocobalamin (vitamin B-12) 1,000 mcg PO DAILY 03/03/21 03/03/21 Unknown History [Vitamin B-12] iron 325 mg PO DAILY 03/03/21 03/03/21 Unknown History magnesium 500 mg PO DAILY 03/03/21 03/03/21 Unknown History multivitamin 1 tab PO DAILY 03/03/21 03/03/21 Unknown History vit C-[id number] sd 1 cap PO DAILY 03/03/21 03/03/21 Unknown History [Tart Donis] vitamin K2 100 mcg PO DAILY 03/03/21 03/03/21 Unknown History Allergies Allergy/AdvReac Type Severity Reaction Status Date / Time adhesive tape Allergy Unknown UNKNOWN Verified 11/29/20 13:34 gentamicin Allergy Unknown UNKNOWN Verified 11/29/20 13:34 hydromorphone [From Dilaudid] Allergy Unknown UNKNOWN Verified 11/29/20 13:34 iodine Allergy Unknown UNKNOWN Verified 11/29/20 13:34 sulfamethoxazole Allergy Unknown UNKNOWN Verified 11/29/20 13:34 [From Septra] trimethoprim [From Septra] Allergy Unknown UNKNOWN Verified 11/29/20 13:34 Current Medications Current Medications Generic Name Dose Route Start Last Admin Trade Name Freq PRN Reason Stop Dose Admin Dextrose/Sodium Chloride 1,000 mls @ 30 mls/hr 03/03/21 10:30 03/03/21 10:41 Dextrose 5%-Sod Chloride 0.9% IV 30 mls/hr .Q24H RAMONITA Administration Pantoprazole Sodium 40 mg 03/03/21 11:00 03/03/21 10:41 Pantoprazole 40 Mg Sdv IVP 40 mg Q12H RAMONITA Administration PFSH Acute PFSH: Medical History (Updated 03/03/21 @ 13:15 by Rosaura Lee MD, [facility] [place]) Acquired short bowel syndrome Anemia in chronic kidney disease (CKD) Chronic GERD Gout due to renal impairment History of breast cancer History of colon cancer History of rectal cancer History of thyroid cancer Hyperkalemia Hypertension Insomnia Ambien caused sleep eating. Melatonin caused nightmare. Muscle cramps Postoperative hypothyroidism Stage 5 chronic kidney disease Vitamin D deficiency Surgical History H/O ileostomy H/O nephrostomy H/O: hysterectomy History of intestinal surgery Hx of cataract surgery Social History Smoking and tobacco status: never smoked Second hand smoke exposure: No Alcohol intake: never Desire information about alcohol rehabilitation?: No Desire information about substance/drug rehabilitation?: No History of recent travel: No Female Reproductive History: Spontaneous abortions: No Vitals/I&O/Wt Last Vital Signs Temp 97.7 F 03/03/21 08:13 Pulse 71 03/03/21 08:13 Resp 14 03/03/21 08:13 BP 145/70 03/03/21 08:13 Pulse Ox 100 03/03/21 08:13 03/02/21 03/03/21 03/03/21 22:59 06:59 14:59 Intake Total 700 / 700 240 / 240 Balance 700 / 700 240 / 240 Weight last 48 hrs Weight 143 lb Weight 143 lb Physical Exam Const: COMMON NORMALS: no acute distress and patient oriented x3 GENERAL APPEARANCE: cooperative, comfortable and well developed HENMT: COMMON NORMALS: normocephalic and moist oral mucous membranes HEAD & SCALP: normocephalic Chest: COMMONS NORMALS: normal inspection of the chest Resp: COMMON NORMALS: normal respiratory effort and clear to auscultation bilaterally AUSCULTATION: clear to auscultation bilaterally Cardio: COMMON NORMALS: regular rate, regular rhythm, No gallops present (Cardio), No murmurs present (Cardio) and No rub (Cardio) RATE: regular rate RHYTHM: regular rhythm GI: INSPECTION: Yes normal to inspection and Yes GI ostomy present (Ileostomy bag contains darkish liquidy stool) AUSCULTATION: Yes normoactive bowel sounds Extremity: COMMON NORMALS: normal to inspection Neuro: COMMON NORMALS: patient oriented x3 and no focal motor deficits Skin: COMMON NORMALS: no rashes or lesions noted GENERAL SKIN EXAM: no rashes or lesions noted A&P Assessment and plan (1) Coffee ground emesis: Given the patient's history of acute drop in hemoglobin, history of Crohn's, as well as the possible coffee-ground emesis she would benefit from an EGD. We will schedule that for tomorrow morning at 8 AM. I discussed the risks of bleeding, and perforation with her. She understands that with her Crohn's those risks are higher. She is hungry, so we will let her eat a regular diet today if she tolerates it, and then have her be n.p.o. after midnight. Status: Acute (2) Chronic GERD: Status: Acute (3) Crohn's disease: Status: Acute Coding Level of Care Code Acute Lighter for [facility] Fwd Exam Comprehensive Diagnoses Coffee ground emesis K92.0 Chronic GERD K21.9 Crohn's disease K50.90
--- NOTE | 2021-03-03 15:45 | PC.NURSE ---
Patient arrived to floor via stretcher. AAOx4, OOBTC and restroon as needed. Ostomy functioning, VSS, no needs at this time. Room clutter free and call light in reach.
[2021-03-03 17:45] LABS: Hematocrit 23.8 % (37.0-47.0); Hemoglobin 7.6 g/dL (11.5-15.3)
[2021-03-03] MEDS: ondansetron 2 mg/ML SDV 2 mL 4 MG IVP (22:44)
[2021-03-04] VITALS (15 sets, daily range): BP systolic 118–163; BP diastolic 64–76; PULSE 64–90; RESP 16–18; TEMP 36.3–37; O2SAT 95–100
[2021-03-04 05:51] LABS: Basophils % 0.3 %; Eosinophils # 0.3 10^3/uL (0.0-0.8); Eosinophils % 3.8 %; Hematocrit 23.5 % (37.0-47.0); Hemoglobin 7.2 g/dL (11.5-15.3); Lymphocytes # 0.9 10^3/uL (0.8-4.8); Lymphocytes % 11.3 %; Mean Corpuscular HGB Conc 30.6 g/dL (30.0-36.0); Mean Corpuscular Hemoglobin 31.4 pg (28.0-34.0); Mean Corpuscular Volume 102.6 fl (81-99); Mean Platelet Volume 10.2 fL (7.4-10.4); Monocytes # 0.6 10^3/uL (0.2-0.9); Monocytes % 7.6 %; Neutrophils # 5.78 10^3/uL (1.8-7.7); Neutrophils % 76.1 %; Nucleated Red Blood Cells % 0 %; Platelet Count 192 10^3/cmm (130-400); Red Blood Count 2.29 10^6/uL (4.1-5.3); Red Cell Distribution Width 20.8 % (12.1-15.1); White Blood Count 7.6 10^3/uL (4.0-10.0)
[2021-03-04 06:12] LABS: Alanine Aminotransferase 9 U/L (0-33); Albumin Level 3.3 g/dL (3.5-5.2); Alkaline Phosphatase 103 IU/L (35-105); Anion Gap 15.8 (5-19); Aspartate Amino Transferase 13 U/L (0-32); Blood Urea Nitrogen 30 mg/dL (8-23); Calcium 8.5 mg/dL (8.5-10.5); Carbon Dioxide 20 mmol/L (22-29); Chloride 110 mmol/L (98-107); Globulin 2.4 g/dL (1.3-4.6); Glomerular Filtration Rate 11.8 mL/min (90-130); Glucose 138 mg/dL (65-115); Osmolality Calculated 300 mOsm/kg (285-295); Potassium 4.8 mmol/L (3.5-5.1); Sodium 141 mmol/L (136-145); Total Bilirubin 0.4 mg/dL (0.15-1.2); Total Protein 5.7 g/dL (6.6-8.7)
[2021-03-04 06:17] LABS: Magnesium 1.5 mg/dL (1.7-2.3)
[2021-03-04] MEDS: sodium chloride 0.9% 1,000 ML 30 ML IV (07:55)
--- NOTE | 2021-03-04 08:17 | ANES.PREANE2 ---
Pre-Anesthetic Assessment Pre-Anesthetic Assessment: Height/Weight: Height 1.68 m Weight 64.864 kg Temp Pulse Resp BP Pulse Ox 98.1 F 90 16 163/70 100 03/04/21 07:32 03/04/21 07:32 03/04/21 07:32 03/04/21 07:32 03/04/21 07:32 Proposed Procedure: Operation Date: 03/04/21 08:00 Proposed Procedures p EGD(Not Applicable) - Dusty Mercado MD Was Beta Gissel taken within 24 hours: N/A Was Clonidine taken within 24 hours: N/A Social: Social History: No alcohol and No tobacco Exam: Pre-Anes Outpt Exam: alert, oriented x 3, clear to auscultation bilaterally and regular rate & rhythm Airway: Submandibular: WNL Cervical ROM: WNL MP: 2 Dentition: False (upper) CV/HEM: CV/HEM: Anemia (chronic) and HTN : : Chronic renal Insufficiency GI: GI: GERD Comments: Crohn's Metabolic: Metabolic: Thyroid Comments: Chronic steroid Anesthetic Plan: ASA status: 3 Anesthesia: MAC Risk of > 500 ml blood loss (7ml/kg in children): No Meds/Allergies Current Medications: Current Medications Generic Name Dose Route Start Last Admin Trade Name Freq PRN Reason Stop Dose Admin Dextrose/Sodium Ch loride 1,000 mls @ 30 ml s/hr 03/03/21 10:30 03/03/21 10:41 Dextrose 5%-Sod Chloride 0.9% IV 30 mls/hr .Q24H RAMONITA Administration Sodium Chloride 1,000 mls @ 30 ml s/hr 03/04/21 07:15 03/04/21 07:55 Sodium Chloride 0.9% IV 03/05/21 07:14 30 mls/hr .Q24H RAMONITA Administration Lisinopril 20 mg 03/03/21 18:00 03/03/21 17:35 Lisinopril 20 Mg Tablet PO Not Given BID RAMONITA Ondansetron HCl 4 mg 03/03/21 10:23 03/03/21 22:44 Ondansetron 2 Mg /Ml Sdv 2 Ml IVP 4 mg Q8H PRN Administration vomiting, or N/V if npo Pantoprazole Sodiu m 40 mg 03/03/21 11:00 03/03/21 22:44 Pantoprazole 40 Mg Sdv IVP 40 mg Q12H RAMONITA Administration Sevelamer Carbonat e 800 mg 03/03/21 12:00 03/03/21 17:34 Sevelamer 800 Mg Tablet PO Not Given TIDWM RAMONITA PFSH Anesthesia PFSH: Medical History (Updated 03/03/21 @ 13:15 by Rosaura Lee MD, [facility] [place]) Acquired short bowel syndrome Anemia in chronic kidney disease (CKD) Chronic GERD Gout due to renal impairment History of breast cancer History of colon cancer History of rectal cancer History of thyroid cancer Hyperkalemia Hypertension Insomnia Ambien caused sleep eating. Melatonin caused nightmare. Muscle cramps Postoperative hypothyroidism Stage 5 chronic kidney disease Vitamin D deficiency Surgical History H/O ileostomy H/O nephrostomy H/O: hysterectomy History of intestinal surgery Hx of cataract surgery Social History Smoking and tobacco status: never smoked Second hand smoke exposure: No Alcohol intake: never Desire information about alcohol rehabilitation?: No Desire information about substance/drug rehabilitation?: No History of recent travel: No Female Reproductive History: Spontaneous abortions: No Data Anesthesia CBC & Chem 7: 03/04/21 04:45 03/04/21 04:45 Other Labs: Laboratory Results - last 48 hr 03/02/21 03/02/21 03/02/21 19:33 19:33 19:33 WBC 9.1 RBC 1.72 L Hgb 5.7 L* Hct 19.4 L* MCV 112.8 H MCH 33.1 MCHC 29.4 L RDW 17.7 H Plt Count 260 MPV 10.3 Neut % (Auto) 77.8 Lymph % (Auto) 12.9 [place] % (Auto) 6.1 Eos % (Auto) 2.1 Baso % (Auto) 0.2 Neut # (Auto) 7.11 Lymph # (Auto) 1.2 [place] # (Auto) 0.6 Eos # (Auto) 0.2 Baso # (Auto) 0.0 Nucleated RBC % (auto) 0 Nucleated RBCs # 0.0 Sodium 141 Potassium 4.9 Chloride 102 Carbon Dioxide 23 Anion Gap 20.9 H BUN 44 H Creatinine 4.0 H GFR Calculation 11.1 L Glucose 142 H Calculated Osmolality 306 H Calcium 9.0 Magnesium Iron TIBC % Saturation Unsat Iron Binding Ferritin Total Bilirubin 0.2 AST 14 ALT 11 Alkaline Phosphatase 110 H Troponin T Baseline 27 H Troponin T 120 Minute Delta Troponin T Troponin T Hi Sens 6Hr Troponin T Hi Sens 6Hr Delta NT-Pro-B Natriuret Pep 718 H Total Protein 6.5 L Albumin 4.2 Globulin 2.3 Lipase 46 Vitamin B12 Folate Blood Type Rho(D) Type Antibody Screen Crossmatch 03/02/21 03/02/21 03/02/21 19:33 19:33 19:33 WBC RBC Hgb Hct MCV MCH MCHC RDW Plt Count MPV Neut % (Auto) Lymph % (Auto) [place] % (Auto) Eos % (Auto) Baso % (Auto) Neut # (Auto) Lymph # (Auto) [place] # (Auto) Eos # (Auto) Baso # (Auto) Nucleated RBC % (auto) Nucleated RBCs # Sodium Potassium Chloride Carbon Dioxide Anion Gap BUN Creatinine GFR Calculation Glucose Calculated Osmolality Calcium Magnesium Iron 36 L TIBC 368 % Saturation 9.7 L Unsat Iron Binding 332 Ferritin 122 Total Bilirubin AST ALT Alkaline Phosphatase Troponin T Baseline Troponin T 120 Minute Delta Troponin T Troponin T Hi Sens 6Hr Troponin T Hi Sens 6Hr Delta NT-Pro-B Natriuret Pep Total Protein Albumin Globulin Lipase Vitamin B12 987 Folate 15.6 Blood Type O Positive Rho(D) Type Positive Antibody Screen Negative Crossmatch See Detail 03/02/21 03/03/21 03/03/21 21:28 01:50 05:40 WBC RBC Hgb Hct MCV MCH MCHC RDW Plt Count MPV Neut % (Auto) Lymph % (Auto) [place] % (Auto) Eos % (Auto) Baso % (Auto) Neut # (Auto) Lymph # (Auto) [place] # (Auto) Eos # (Auto) Baso # (Auto) Nucleated RBC % (auto) Nucleated RBCs # Sodium 142 Potassium 4.7 Chloride 106 Carbon Dioxide 26 Anion Gap 14.7 BUN 41 H Creatinine 4.3 H GFR Calculation 10.2 L Glucose 165 H Calculated Osmolality 308 H Calcium 8.7 Magnesium Iron TIBC % Saturation Unsat Iron Binding Ferritin Total Bilirubin 0.4 AST 13 ALT 10 Alkaline Phosphatase 99 Troponin T Baseline Troponin T 120 Minute 22.92 H Delta Troponin T -4.08 L Troponin T Hi Sens 6Hr 21.33 H Troponin T Hi Sens 6Hr Delta -5.67 L NT-Pro-B Natriuret Pep Total Protein 6.2 L Albumin 3.6 Globulin 2.6 Lipase Vitamin B12 Folate Blood Type Rho(D) Type Antibody Screen Crossmatch 03/03/21 03/03/21 03/04/21 08:32 17:33 04:45 WBC 7.3 7.6 RBC 2.52 L 2.29 L Hgb 8.0 L D 7.6 L 7.2 L Hct 25.5 L D 23.8 L 23.5 L MCV 101.2 H D 102.6 H MCH 31.7 31.4 MCHC 31.4 D 30.6 RDW 21.0 H 20.8 H Plt Count 206 192 MPV 10.2 10.2 Neut % (Auto) 76.9 76.1 Lymph % (Auto) 11.7 11.3 [place] % (Auto) 7.0 7.6 Eos % (Auto) 3.2 3.8 Baso % (Auto) 0.4 0.3 Neut # (Auto) 5.57 5.78 Lymph # (Auto) 0.9 0.9 [place] # (Auto) 0.5 0.6 Eos # (Auto) 0.2 0.3 Baso # (Auto) 0.0 0.0 Nucleated RBC % (auto) 0 0 Nucleated RBCs # 0.0 0.0 Sodium Potassium Chloride Carbon Dioxide Anion Gap BUN Creatinine GFR Calculation Glucose Calculated Osmolality Calcium Magnesium Iron TIBC % Saturation Unsat Iron Binding Ferritin Total Bilirubin AST ALT Alkaline Phosphatase Troponin T Baseline Troponin T 120 Minute Delta Troponin T Troponin T Hi Sens 6Hr Troponin T Hi Sens 6Hr Delta NT-Pro-B Natriuret Pep Total Protein Albumin Globulin Lipase Vitamin B12 Folate Blood Type Rho(D) Type Antibody Screen Crossmatch 03/04/21 03/04/21 04:45 04:45 WBC RBC Hgb Hct MCV MCH MCHC RDW Plt Count MPV Neut % (Auto) Lymph % (Auto) [place] % (Auto) Eos % (Auto) Baso % (Auto) Neut # (Auto) Lymph # (Auto) [place] # (Auto) Eos # (Auto) Baso # (Auto) Nucleated RBC % (auto) Nucleated RBCs # Sodium 141 Potassium 4.8 Chloride 110 H Carbon Dioxide 20 L Anion Gap 15.8 BUN 30 H Creatinine 3.8 H GFR Calculation 11.8 L Glucose 138 H Calculated Osmolality 300 H Calcium 8.5 Magnesium 1.5 L Iron TIBC % Saturation Unsat Iron Binding Ferritin Total Bilirubin 0.4 AST 13 ALT 9 Alkaline Phosphatase 103 Troponin T Baseline Troponin T 120 Minute Delta Troponin T Troponin T Hi Sens 6Hr Troponin T Hi Sens 6Hr Delta NT-Pro-B Natriuret Pep Total Protein 5.7 L Albumin 3.3 L Globulin 2.4 Lipase Vitamin B12 Folate Blood Type Rho(D) Type Antibody Screen Crossmatch Cardiac Studies: No Data to Display
--- NOTE | 2021-03-04 08:24 | ANE.PACU2 ---
Inpatient post-anesthesia follow up: Airway intact: Yes Vital signs: Temperature 98.1 F Pulse Rate [Monito r] 92 Pulse Rate 90 Respiratory Rate 16 Blood Pressure [Le ft Arm] 138/71 Blood Pressure 163/70 Pulse Oximetry 100 Oxygen Delivery Me thod Room Air Oxygen Flow Rate Fraction of Inspir ed Oxygen Hydration adequate: Yes Nausea and vomiting: No Pain level: 1 Mental status: Baseline
[2021-03-04] MEDS: midazolam 1 mg/mL INJ 2 mL 2 MG IVP (08:45)
--- NOTE | 2021-03-04 09:01 | CTR_ITS ---
PROCEDURE INFORMATION: Exam: CT Abdomen And Pelvis Without Contrast Exam date and time: 03/04/2021 9:01 AM Age: 70 years old Clinical indication: Mass, lump, or swelling; Other: Stomach; Prior surgery; Surgery type: Colon, gb, appy; Additional info: Stomach mass TECHNIQUE: Imaging protocol: Computed tomography of the abdomen and pelvis without contrast. Radiation optimization: All CT scans at this facility use at least one of these dose optimization techniques: automated exposure control; mA and/or kV adjustment per patient size (includes targeted exams where dose is matched to clinical indication); or iterative reconstruction. COMPARISON: CT abdomen pelvis wo con [id number] 03/02/2021 9:01 PM RADIATION DOSE METRICS: Total DLP (mGy-cm): 1064.46 FINDINGS: Detailed evaluation of the abdominal and pelvic viscera is somewhat limited in the absence of intravenous contrast. Lungs: Interstitial prominence, mild parenchymal stranding, and 3 mm right lower lobe nodule.For patients at low risk (minimal or absent history of smoking and of other known risk factors), no routine follow-up is indicated. For patients at high risk (history of smoking or of other known risk factors), consider optional CT Chest at 12 months. (Reference: [facility]). Liver: 10 mm hepatic cyst. Gallbladder and bile ducts: Status post cholecystectomy. Pancreas: No pancreatic mass or ductal dilatation. Spleen: No splenomegaly. Adrenal glands: Unremarkable adrenals. Kidneys and ureters: Right renal atrophy. Multiple cysts, including a 1.6 cm cyst in the lateral left kidney. Numerous 1 mm nonobstructing bilateral renal calculi, along with a dominant nonobstructing 15 mm left renal calculus. Stomach and bowel: Wall thickening in the nondistended stomach. Small bowel dilatation without a focal transition zone. Right-sided ostomy. Appendix: Status post appendectomy. Intraperitoneal space: Multiple pelvic surgical clips with associated beam hardening artifact. Stable 2.5 cm postoperative cystic collection in the posterior pelvic midline. No significant free fluid. Vasculature: Vascular calcification. No abdominal aortic aneurysm. Lymph nodes: Subcentimeter lymph nodes. Urinary bladder: Bladder dilatation. Reproductive: Status post hysterectomy. Bones/joints: Osteopenia. Degenerative change and disc bulging. CT/CT abdomen pelvis wo con [id number] IMPRESSION: 1. Numerous 1 mm nonobstructing bilateral renal calculi, along with a dominant nonobstructing 15 mm left renal calculus. 2. Wall thickening in the nondistended stomach. 3. Additional findings as described above. COMMENTS: Consistent with the [employer]'s Incidental Findings Committee white paper (J Am Chacorta Radiol 2018): Any incidental renal lesion less than 1 cm or classified as too small to characterize, or any incidental cystic renal lesion characterized as simple-appearing, is likely benign. No follow-up imaging is recommended for these lesions per consensus recommendations based on imaging criteria. Radiation Dose CTDIVOL = (mGy): DLP = 1064.46 (mGy-cm)
--- NOTE | 2021-03-04 09:02 | P.PN_ITS ---
Subjective Subjective: Interval history: I recently performed an EGD on the patient. She was found to have a mass of the stomach body. It was 2 to 3 cm in size. Its appearance is consistent with a leiomyoma. Vitals/I&O/Wt Last Vital Signs Temp 97.3 F L 03/04/21 08:19 Pulse 85 03/04/21 08:34 Resp 16 03/04/21 08:34 BP 152/68 03/04/21 08:34 Pulse Ox 99 03/04/21 08:34 03/03/21 03/04/21 03/04/21 22:59 06:59 14:59 Intake Total 120 / 360 300 / 300 Balance 120 / 110 300 / 300 Weight last 48 hrs Weight 143 lb Weight 143 lb Physical Exam Const: COMMON NORMALS: no acute distress and patient oriented x3 GENERAL APPEARANCE: cooperative, comfortable and well developed HENMT: COMMON NORMALS: normocephalic and moist oral mucous membranes HEAD & SCALP: normocephalic Chest: COMMONS NORMALS: normal inspection of the chest Resp: COMMON NORMALS: normal respiratory effort and clear to auscultation bilaterally AUSCULTATION: clear to auscultation bilaterally Cardio: COMMON NORMALS: regular rate, regular rhythm, No gallops present (Cardio), No murmurs present (Cardio) and No rub (Cardio) RATE: regular rate RHYTHM: regular rhythm Extremity: COMMON NORMALS: normal to inspection Neuro: COMMON NORMALS: patient oriented x3 and no focal motor deficits Skin: COMMON NORMALS: no rashes or lesions noted GENERAL SKIN EXAM: no rashes or lesions noted Data : 03/04/21 04:45 03/04/21 04:45 A&P Assessment and plan (1) Gastric mass: I discussed the mass with the patient. She is aware that we will be waiting for pathology for definitive diagnosis. We will perform a CT scan of the abdomen and pelvis without contrast because of her kidney function. The patient was devastated. She has been through treatment for cancer multiple times and is concerned she will not build to do that again. I did explain to her that if it is a leiomyoma that it could be amenable to endoscopic intervention without further chemotherapy. Hopefully, further information will bring us relatively good news. The patient would benefit from a transfusion of 2 more units of blood because of the risk of a rebleed. I will see her on an outpatient basis to discuss pathology. Status: Acute Attestations Medical Necessity Statement*: Decisions regarding discharge are deferred to the hospitalist service Coding Level of Care Code Acute [employer] T[employer] for Yesig Malloryd Diagnoses Gastric mass K31.89
--- NOTE | 2021-03-04 10:28 | PM.DCS ---
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 Hemoglobin here is noted to be 5.7, few months ago this was at 9.5. Patient has had multiple transfusions back in 2013 and 2014. She had CKD for several years, was on dialysis in the past, eventually discontinued once creatinine stabilized at 3. More recently creatinine has been increasing in the 4 range, she has refused referral to nephrology. No complaints of any fever chest pain dyspnea palpitations cough abdominal pain. No changes in ileostomy output. No noted blood in the ileal output. No vomiting Patient was admitted to the hospital for further evaluation of anemia. She was given 2 unit of blood transfusion after which her hemoglobin improved to 8 but she did end up having one episode of large coffee-ground emesis. She underwent endoscopy on March 04 which showed a nonobstructive, large sized ulcerated 20 mm x 20 mm mass with suspicion of malignancy. No active bleeding was found. EGD also showed duodenitis. Biopsies were taken. Patient was given 1 more unit of blood transfusion. For now patient has received 3 units of blood transfusion. She is been discharged in hemodynamically stable condition with advised to follow-up with a primary care provider within next 1 week for repeat CBC, with Dr. Mercado for discussion of results of pathology and then possibly with surgery for mass removal. Her dose of Pepcid has been changed to Protonix. Physical Exam Narrative: EXAM NARRATIVE: General: No acute distress, AO x3 HEENT: PERRLA, pupils bilaterally equal and reactive, pallors not present Chest: Normal vesicular breath sounds, no added sounds, equal good air entry bilaterally CVS: S1-S2 regular, no murmurs, no tachycardia, no gallops, no rubs Abdomen: Soft, nontender, ileostomy in place. Discharge Data Data Completed and Pending: Completed Studies During Hospitalization Category Date Time Status CT abdomen pelvis wo con [id number] Rout ine Cat Scan 03/04/21 09:[address] abdomen pelvis wo con [id number] Urge nt Cat Scan 03/02/21 20:37 Completed XR chest 1V brady ble [id number] Stat Exams 03/02/21 20:37 Completed Pending at discharge Category Date Time Status Leukocyte Reduced RBC Stat Lab 03/02/21 19:33 Results [facility] SARS-CoV-2 RNA Routine Lab 03/02/21 22:00 Received Type and Screen R outine Lab 03/02/21 19:33 Results Pathology: Surgic al [PTH] Routine Pth 03/04/21 08:13 Ordered Labs from last 24 hours 03/04/21 03/04/21 03/04/21 04:45 04:45 04:45 WBC 7.6 RBC 2.29 L Hgb 7.2 L Hct 23.5 L MCV 102.6 H MCH 31.4 MCHC 30.6 RDW 20.8 H Plt Count 192 MPV 10.2 Neut % (Auto) 76.1 Lymph % (Auto) 11.3 [place] % (Auto) 7.6 Eos % (Auto) 3.8 Baso % (Auto) 0.3 Neut # (Auto) 5.78 Lymph # (Auto) 0.9 [place] # (Auto) 0.6 Eos # (Auto) 0.3 Baso # (Auto) 0.0 Nucleated RBC % (a uto) 0 Nucleated RBCs # 0.0 Sodium 141 Potassium 4.8 Chloride 110 H Carbon Dioxide 20 L Anion Gap 15.8 BUN 30 H Creatinine 3.8 H GFR Calculation 11.8 L Glucose 138 H Calculated Osmolal ity 300 H Calcium 8.5 Magnesium 1.5 L Total Bilirubin 0.4 AST 13 ALT 9 Alkaline Phosphata se 103 Total Protein 5.7 L Albumin 3.3 L Globulin 2.4 Crossmatch 03/03/21 03/02/21 17:33 19:33 WBC RBC Hgb 7.6 L Hct 23.8 L MCV MCH MCHC RDW Plt Count MPV Neut % (Auto) Lymph % (Auto) [place] % (Auto) Eos % (Auto) Baso % (Auto) Neut # (Auto) Lymph # (Auto) [place] # (Auto) Eos # (Auto) Baso # (Auto) Nucleated RBC % (a uto) Nucleated RBCs # Sodium Potassium Chloride Carbon Dioxide Anion Gap BUN Creatinine GFR Calculation Glucose Calculated Osmolal ity Calcium Magnesium Total Bilirubin AST ALT Alkaline Phosphata se Total Protein Albumin Globulin Crossmatch See Detail Addt'l Data from Hospital Stay: Laboratory Results WBC 7.6 10^3/uL (4.0- 10.0) 03/04/21 04:45 RBC 2.29 10^6/uL (4.1 -5.3) L 03/04/21 04:45 Hgb 7.2 g/dL (11.5-15 .3) L 03/04/21 04:45 Hct 23.5 % (37.0-47.0 ) L 03/04/21 04:45 MCV 102.6 fl (81-99) H 03/04/21 04:45 MCH 31.4 pg (28.0-34. 0) 03/04/21 04:45 MCHC 30.6 g/dL (30.0-3 6.0) 03/04/21 04:45 RDW 20.8 % (12.1-15.1 ) H 03/04/21 04:45 Plt Count 192 10^3/cmm (130 -400) 03/04/21 04:45 MPV 10.2 fL (7.4-10.4 ) 03/04/21 04:45 Neut % (Auto) 76.1 % 03/04/21 04:45 Lymph % (Auto) 11.3 % 03/04/21 04:45 [place] % (Auto) 7.6 % 03/04/21 04:45 Eos % (Auto) 3.8 % 03/04/21 04:45 Baso % (Auto) 0.3 % 03/04/21 04:45 Neut # (Auto) 5.78 10^3/uL (1.8 -7.7) 03/04/21 04:45 Lymph # (Auto) 0.9 10^3/uL (0.8- 4.8) 03/04/21 04:45 [place] # (Auto) 0.6 10^3/uL (0.2- 0.9) 03/04/21 04:45 Eos # (Auto) 0.3 10^3/uL (0.0- 0.8) 03/04/21 04:45 Baso # (Auto) 0.0 10^3/uL (0.0- 0.1) 03/04/21 04:45 Nucleated RBC % (a uto) 0 % 03/04/21 04:45 Nucleated RBCs # 0.0 /100WBC 03/04/21 04:45 Sodium 141 mmol/L (136-1 45) 03/04/21 04:45 Potassium 4.8 mmol/L (3.5-5 .1) 03/04/21 04:45 Chloride 110 mmol/L (98-10 7) H 03/04/21 04:45 Carbon Dioxide 20 mmol/L (22-29) L 03/04/21 04:45 Anion Gap 15.8 (5-19) 03/04/21 04:45 BUN 30 mg/dL (8-23) H 03/04/21 04:45 Creatinine 3.8 mg/dL (0.5-0. 9) H 03/04/21 04:45 GFR Calculation 11.8 mL/min (90-1 30) L 03/04/21 04:45 Glucose 138 mg/dL (65-115 ) H 03/04/21 04:45 Calculated Osmolal ity 300 mOsm/kg (285- 295) H 03/04/21 04:45 Calcium 8.5 mg/dL (8.5-10 .5) 03/04/21 04:45 Magnesium 1.5 mg/dL (1.7-2. 3) L 03/04/21 04:45 Iron 36 ug/dL (37-145) L 03/02/21 19:33 TIBC 368 mcg/dl 03/02/21 19:33 % Saturation 9.7 % (20-50) L 03/02/21 19:33 Unsat Iron Binding 332 ug/dL (112-34 7) 03/02/21 19:33 Ferritin 122 ng/mL (15-150 ) 03/02/21 19:33 Total Bilirubin 0.4 mg/dL (0.15-1 .2) 03/04/21 04:45 AST 13 U/L (0-32) 03/04/21 04:45 ALT 9 U/L (0-33) 03/04/21 04:45 Alkaline Phosphata se 103 IU/L (35-105) 03/04/21 04:45 Troponin T Baselin e 27 ng/L (0-10) H 03/02/21 19:33 Troponin T 120 Min [place] 22.92 ng/L (0-10) H 03/02/21 21:28 Delta Troponin T -4.08 ABS# (0-10) L 03/02/21 21:28 Troponin T Hi Sens 6Hr 21.33 ng/L (0-10) H 03/03/21 01:50 Troponin T Hi Sens 6Hr Delta -5.67 ng/L (0-12) L 03/03/21 01:50 NT-Pro-B Natriuret Pep 718 pg/mL (0-125) H 03/02/21 19:33 Total Protein 5.7 g/dL (6.6-8.7 ) L 03/04/21 04:45 Albumin 3.3 g/dL (3.5-5.2 ) L 03/04/21 04:45 Globulin 2.4 g/dL (1.3-4.6 ) 03/04/21 04:45 Lipase 46 U/L (13-60) 03/02/21 19:33 Vitamin B12 987 pg/mL (232-12 45) 03/02/21 19:33 Folate 15.6 ng/mL (4.8-3 7.3) 03/02/21 19:33 Blood Type O Positive 03/02/21 19:33 Rho(D) Type Positive 03/02/21 19:33 Antibody Screen Negative 03/02/21 19:33 Crossmatch See Detail 03/02/21 19:33 Impressions Chest X-Ray 03/02/21 20:37 IMPRESSION: No acute findings. Abdomen/Pelvis CT 03/04/21 09:01 IMPRESSION: 1. Numerous 1 mm nonobstructing bilateral renal calculi, along with a dominant nonobstructing 15 mm left renal calculus. 2. Wall thickening in the nondistended stomach. 3. Additional findings as described above. COMMENTS: Consistent with the [employer]'s Incidental Finding Committee white paper (J Am Chac[employer] Radiol 2018): Any incidental renal lesion less than 1 cm or classified as too small to characterize, or any incidental cystic renal lesion characterized as simple-appearing, is likely benign. No follow-up imaging is recommended for these lesions per consensus recommendations based on imaging criteria. Radiation Dose CTDIVOL = (mGy): DLP = 1064.46 (mGy-cm) Vitals: Last Vital Signs Temp 97.3 F L 03/04/21 08:19 Pulse 85 03/04/21 08:34 Resp 16 03/04/21 08:34 BP 152/68 03/04/21 08:34 Pulse Ox 99 03/04/21 08:34 Discharge Plan Discharge Patient Disposition: Home Condition: Stable Prescriptions: New pantoprazole [Protonix] 40 mg tablet,delayed release (DR/EC) 40 mg PO BID 14 Days Qty: 28 RF: 0 Continued clonidine HCl 0.1 mg tablet 0.1 mg PO DAILY PRN (Reason: hypertensive emergency) 30 Days Qty: 30 RF: 1 diphenoxylate-atropine [Lomotil] 2.5-0.025 mg tablet 1 tab PO QID PRN (Reason: diarrhea) 90 Days Qty: 360 RF: 1 levothyroxine [Synthroid] 150 mcg tablet 150 mcg PO DAILY 90 Days Qty: 90 RF: 1 levothyroxine [Synthroid] 75 mcg tablet 75 mcg PO DAILY 90 Days Qty: 90 RF: 1 lisinopril 20 mg tablet 20 mg PO BID 90 Days Qty: 180 RF: 1 loperamide [Anti-Diarrheal (loperamide)] 2 mg capsule 6 mg PO TID 90 Days Qty: 810 RF: 1 ondansetron HCl [Zofran] 4 mg tablet 4 mg PO Q8H PRN (Reason: nausea and vomiting) 90 Days Qty: 270 RF: 1 potassium citrate 10 mEq (1,080 mg) tablet extended release 10 meq PO DAILY 90 Days Qty: 90 RF: 1 sevelamer carbonate [Renvela] 0.8 gram powder in packet 0.8 g PO TID 30 Days Qty: 90 RF: 1 tizanidine 4 mg tablet 4 mg PO BID PRN (Reason: muscle spasticity) 90 Days Qty: 180 RF: 1 prednisone 20 mg tablet 20 mg PO DAILY PRN (Reason: gout flare) 5 Days Qty: 20 RF: 2 allopurinol 100 mg tablet 50 mg PO DAILY 90 Days Qty: 45 RF: 1 lorazepam 0.5 mg tablet 0.5 mg PO DAILY PRN (Reason: insomnia) Qty: 30 RF: 5 multivitamin Tablet 1 tab PO DAILY RF: 0 magnesium 500 mg Tablet 500 mg PO DAILY RF: 0 Vitamin B-12 500 mcg Tablet 1,000 mcg PO DAILY RF: 0 Calcium 500 500 mg calcium (1,250 mg) Tablet 500 mg PO DAILY RF: 0 iron 325 mg (65 mg iron) Tablet 325 mg PO DAILY RF: 0 Vitamin D3 25 mcg (1,000 unit) Tablet 25 mcg PO DAILY RF: 0 alpha lipoic acid 100 mg Capsule 100 mg PO DAILY RF: 0 Tart Donis [phone] mg Capsule 1 cap PO DAILY RF: 0 coenzyme Q10 50 mg Tablet 50 mg PO DAILY RF: 0 vitamin K2 100 mcg Capsule 100 mcg PO DAILY RF: 0 Discontinued famotidine [Pepcid] 20 mg tablet 20 mg PO BID 90 Days Qty: 180 RF: 1 Discharge Orders: Discharge Order (Routine); Ordered 03/04/21 Ordered By: Gage Everett Referrals: Dusty Mercado MD [Physician] - 7-10 days Dionne Montaño MD [Primary Care Provider] - 4-7 days (repeat CBC) Discharge Diet: Regular Discharge Activity: Resume usual activity Patient Instructions: GI Discharge Instructions, Opioid Safety Activity Restrictions/Additional Instructions: Please follow-up with your primary care provider within next 1 week for repeat CBC. Follow-up with Dr. Mercado for the results of biopsy and then possibly with surgery for mass removal. Discharge Attestations Time Spent in Discharge Care*: greater than 30 min Specific Discharge Activities: educating patient, discussing with pcp/other providers, discussing with pillowcase turner/social workers/dc planners, documenting/other paperwork and evaluating patient/reviewing data Status at Discharge: Cognitive status at discharge: cognitively intact, Behavioral status at discharge: cooperative, Functional status at discharge: independent ambulation Overall status at discharge: patient is back to baseline Quality Metrics Clinical Quality Measures During this hospital stay, did patient experience: None Coding Level of Care Code Acute Chg FW DC note Diagnoses Gastric mass K31.89
[2021-03-04] MEDS: diphenhydrAMINE 25 mg Capsule PO (11:37)
[2021-03-04] MEDS: acetaminophen 325 mg Tablet 650 MG PO (11:37)
[2021-03-04] MEDS: pantoprazole 40 mg SDV IVP (12:30)
[2021-03-04] MEDS: ondansetron 2 mg/ML SDV 2 mL 4 MG IVP (17:02)
[2021-03-04 17:52] LABS: Quest SARS-CoV-2 RNA NOT DETECTED (NOT DETECTED)
== END 2021-03-04 17:10 | disposition home or self-care (01) | DRG 392 ==
LOC: ER 22:50 → ER IP 03-03 05:47 → MEDSURG 03-03 07:10
PROVIDERS: Emergency Medicine; Family Medicine; Admitting Provider Student in an Organized Health Care Education/Training Program; Emergency Provider Family Medicine; PCP Family Medicine; Visit Provider Student in an Organized Health Care Education/Training Program
PROC: 0DJ08ZZ Inspection of Upper Intestinal Tract, Via Natural or Artificial Opening Endoscopic (ICD-10-PCS; CPT 43235; principal; 2021-03-04 08:00)
DX: K31.89 Other diseases of stomach and duodenum (principal); I12.0 Hypertensive chronic kidney disease with stage 5 chronic kidney disease or end stage renal disease; N18.5 Chronic kidney disease, stage 5; K91.2 Postsurgical malabsorption, not elsewhere classified; K29.80 Duodenitis without bleeding; K21.9 Gastro-esophageal reflux disease without esophagitis; G47.00 Insomnia, unspecified; D63.1 Anemia in chronic kidney disease; Z20.822 Contact with and (suspected) exposure to COVID-19; Z90.49 Acquired absence of other specified parts of digestive tract; Z79.890 Hormone replacement therapy; Z88.2 Allergy status to sulfonamides; Z85.3 Personal history of malignant neoplasm of breast; Z85.048 Personal history of other malignant neoplasm of rectum, rectosigmoid junction, and anus; Z90.710 Acquired absence of both cervix and uterus; Z98.49 Cataract extraction status, unspecified eye; Z93.6 Other artificial openings of urinary tract status; Z93.2 Ileostomy status; Z87.891 Personal history of nicotine dependence
CPT/HCPCS: 12345; 36415; 36430; 43239; 71045; 74176; 80053; 82607; 82728; 82746; 83540; 83550; 83690; 83735; 83880; 84484; 85014; 85018; 85025; 86850; 86900; 86920; 87635; 88305; 93005; 96361; 96374; 99285; C9113; G0378; J2250; J2405; J2704; J7030; P9016; P9040

== ENCOUNTER → 2021-03-14 15:17 | Outpatient (BNVA) | payer MEDICARE, SELFPAY | PROVIDERS: PCP Family Medicine; Visit Provider Family Medicine | DX: D64.9 Anemia, unspecified (principal); K31.89 Other diseases of stomach and duodenum; N18.5 Chronic kidney disease, stage 5 | CPT/HCPCS: 80048; 85025 ==

== ENCOUNTER → 2021-03-28 12:00 | Outpatient (BNVA) | payer MEDICARE, SELFPAY | PROVIDERS: PCP Family Medicine; Visit Provider Family Medicine | DX: K31.89 Other diseases of stomach and duodenum (principal); N18.5 Chronic kidney disease, stage 5; D64.9 Anemia, unspecified | CPT/HCPCS: 80053; 85025 ==